=== PATIENT | female | born 1950 | race Caucasian/White ===

== ENCOUNTER → 2019-05-31 | Outpatient (CLI) | payer OTHER ==
[2019-05-31 16:55] LABS: HEMATOCRIT 38.4 % (37.0-47.0); HEMOGLOBIN 12.9 gm/dL (12.0-15.0); MCH 27.1 pg (26.0-34.0); MCHC 33.6 g/dL (28.0-37.0); MCV 80.7 fL (80.0-100.0); MPV 8.5 fl. (7.2-11.1); RBC 4.76 mil/uL (4.20-5.00); RDW-CV 13.9 % (10.5-14.5); WBC 9.4 thou/uL (4.0-11.0)
[2019-05-31 17:01] LABS: CALCIUM 9.8 mg/dL (8.5-10.1); CREATININE 0.8 mg/dL (0.6-1.3); POTASSIUM 3.9 mmol/L (3.5-5.1)
== END ==
LOC: M.LAB 16:38
PROVIDERS: Orthopaedic Surgery
DX: Z01.812 Encounter for preprocedural laboratory examination (principal)

== ENCOUNTER → 2019-06-01 | Outpatient (CLI) | payer OTHER ==
--- NOTE | 2019-06-01 16:38 | EKG ---
[place] [address] ELECTROCARDIOGRAM REPORT Name: CHACHO REDDY Room: [facility]#: [id number] Admission: 06/01/19 Attend Phys: Lul Dubon DO Discharge: Date of : 54 Report #: [id number] THIS REPORT FOR: //name// [facility] Test Date: 2019-06-01 Test Time: 12:34:00 Pat Name: CHACHO REDDY Department: Room: Gender: F [employer] Screen [employer]er: PIEDAD : 1950 Requested By: Lul Dubon Order Number: [id number] Reading MD: Jamse Carver Measurements Intervals [place] Rate: 81 P: 43 AK: 157 QRS: 48 QRSD: 99 T: 34 QT: 351 QTc: 408 Interpretive Statements Sinus rhythm Probable left atrial enlargement No previous ECG available for comparison Electronically Signed On 06-01-2019 16:38:10 CDT by James Carver [email or web address] <ELECTRONICALLY SIGNED> By: James Carver MD, [facility] 06/01/19 1638 1234 1234 James Carver MD, FACC /EPI
== END ==
LOC: M.CRD 12:16
DX: Z01.818 Encounter for other preprocedural examination (principal)

== ENCOUNTER → 2019-07-11 | Outpatient (CLI) | payer OTHER ==
[2019-07-11 12:01] LABS: POTASSIUM 3.7 mmol/L (3.5-5.1)
== END ==
LOC: M.LAB 04:42
PROVIDERS: Anesthesiology
DX: E87.6 Hypokalemia (principal); E11.9 Type 2 diabetes mellitus without complications

== ENCOUNTER → 2020-06-28 | Outpatient (CLI) | payer OTHER | LOC: M.ULTRA 09:53 | PROVIDERS: ATTEND Internal Medicine | DX: I10 Essential (primary) hypertension (principal); M19.90 Unspecified osteoarthritis, unspecified site; K21.9 Gastro-esophageal reflux disease without esophagitis; F32.0 Major depressive disorder, single episode, mild; E78.5 Hyperlipidemia, unspecified ==

== ENCOUNTER → 2021-03-20 | Outpatient (CLI) | payer OTHER | LOC: M.CT 10:42 | PROVIDERS: ATTEND Family Medicine | DX: E78.5 Hyperlipidemia, unspecified (principal) ==